=== PATIENT | female | born 1985 | race Caucasian/White ===

== ENCOUNTER 2016-08-13 14:15 | Emergency (ER) | payer SELFPAY ==
[~2016-08-13] VITALS: Ht 154.9 cm; Wt 40.8 kg
[~2016-08-13 14:15] MED LIST: PREN-385 PO
[2016-08-13 14:19] VITALS: BP 131/71
--- NOTE | 2016-08-13 14:25 | NUR ---
PT BIBA TO ER BED 3.
--- NOTE | 2016-08-13 14:30 | NUR ---
31 YO FEMALE BIB EMS FROM HOME AFTER FALLING ON SET FLOOR x AROUND 1330. AAOx4,PERRLA, BREATHING EVEN AND UNLABORED. PT STATES PAIN 8/10 ACHING NON-RADIATING. PT DENIES MEDICAL HISTORY OR PRIOR SURGERY. PT DENIES KO/LOC. ERMD NOTIFIED OF PATIENT STATUS.
--- NOTE | 2016-08-13 14:37 | NUR ---
Patient being evaluated by physician at bedside.
[2016-08-13] MEDS ORDERED: ACETAMIN/CODEINE 120/12MG-5ML 5 ML UDC PO ONE (14:40)
--- NOTE | 2016-08-13 15:05 | NUR ---
PT TAKEN TO RADIOLOGY VIA WHEELCHAIR BY X-RAY TECH.
--- NOTE | 2016-08-13 15:21 | NUR ---
PT RETURNED FROM RADIOLOGY VIA WHEELCHAIR BY X-RAY TECH.
[2016-08-13] MEDS ORDERED: KETOROLAC 60 MG/2 ML VIAL IM ONE (16:10)
--- NOTE | 2016-08-13 16:33 | NUR ---
Patient discharged with v/s stable. Written and verbal after care instructions given and explained. Patient alert, oriented and verbalized understanding of instructions. Ambulatory with steady gait. All questions addressed prior to discharge. ID band removed. Patient advised to follow up with PMD. Rx of NORCO 5/325MG AND MOTRIN 600 MG TABLET given. Patient educated on indication of medication including possible reaction and side effects. Opportunity to ask questions provided and answered.
[2016-08-13 16:37] VITALS: BP 112/61
== END 2016-08-13 16:33 | disposition home or self-care (01) ==
LOC: MED 14:15
DX: S22.31XA Fracture of one rib, right side, initial encounter for closed fracture (principal); W18.39XA Other fall on same level, initial encounter; Y93.E5 Activity, floor mopping and cleaning; Y92.89 Other specified places as the place of occurrence of the external cause; Y99.8 Other external cause status
CPT/HCPCS: 71101; 73060; 96372; 99284; J1885